=== PATIENT | female | born 1955 | race Caucasian/White ===

== ENCOUNTER 2020-05-10 13:03 | Day surgery (SDC) | payer MEDICARE ==
[~2020-05-10] VITALS: Ht 167.6 cm; Wt 93.2 kg
[~2020-05-10 13:03] MED LIST: CEFAZOLIN 1,000 MG ONE; DEXAMETHASONE 4 MG/ML, 1ML ONE; ONDANSETRON 2MG/ML, 2ML ONE; PROPOFOL 10 MG/ML, 20ML ONE; SUCCINYLCHOLINE 20 MG/ML, 10ML ONE
[2020-05-10] MEDS ORDERED: [UNRECOGNIZED DRUG - OTHER] PO (13:45)
[2020-05-10] MEDS ORDERED: ALBUTEROL INH (13:45)
[2020-05-10] MEDS ORDERED: OMEPRAZOLE PO (13:45)
[2020-05-10] MEDS ORDERED: SPIRIVA INH (13:45)
[2020-05-10] MEDS ORDERED: HYDROCHLOROTHIAZIDE PO (13:45)
[2020-05-10] MEDS ORDERED: CHLORHEXIDINE 15 ML UDC ONE (13:49)
[2020-05-10] MEDS ORDERED: CHLORHEXIDINE 15 ML UDC MM ONE (14:00)
[2020-05-10 14:09] VITALS: BP 121/73
[2020-05-10 14:21] LABS: ALANINE AMINOTRANSFERASE 11 U/L (12-78); ALBUMIN 3.1 g/dL (3.4-5.0); ANION GAP 7 mmol/L (5-15); CALCIUM 9.4 mg/dL (8.5-10.1); CHLORIDE 101 mmol/L (98-107); CREATININE 0.97 mg/dL (0.55-1.02)
[2020-05-10 14:23] LABS: ALKALINE PHOSPHATASE 128 U/L (45-117); BILIRUBIN,TOTAL 0.7 mg/dL (0.2-1.0); TOTAL PROTEIN 7.2 g/dL (6.4-8.2)
[2020-05-10] MEDS ORDERED: LACTATED RINGERS 1,000 ML IV SCH (14:30)
[2020-05-10] MEDS ORDERED: BUPIVACAINE/PF 0.5% ONE (14:40)
[2020-05-10] MEDS ORDERED: HEPARIN 1,000 UNITS/ML, 10ML ONE (14:40)
[2020-05-10] MEDS ORDERED: EPINEPHRINE 1 MG/ML, 1ML ONE (14:40)
[2020-05-10] MEDS ORDERED: MIDAZOLAM 1 MG/ML, 2ML ONE (15:15)
[2020-05-10] MEDS ORDERED: FENTANYL PF 250 MCG/5ML ONE (15:16)
[2020-05-10] MEDS ORDERED: BUPIVACAINE/PF-EPI 0.5% 1:200K INFIL ONE (16:44)
[2020-05-10] MEDS ORDERED: HEPARIN 1,000 UNITS/ML, 1ML IV ONE (16:46)
[2020-05-10] MEDS ORDERED: MEPERIDINE/PF 25MG/0.5ML IVPush PRN (18:00)
[2020-05-10] MEDS ORDERED: PROMETHAZINE 25 MG/ML, 1ML IVPush PRN (18:00)
[2020-05-10] MEDS ORDERED: DIAZEPAM 5 MG/ML, 2ML IVPush PRN (18:00)
[2020-05-10] MEDS ORDERED: ACETAMINOPHEN 325 MG TABLET PO PRN (18:00)
[2020-05-10] MEDS ORDERED: DIPHENHYDRAMINE 50 MG/ML, 1ML IVPush PRN (18:00)
[2020-05-10] MEDS ORDERED: MIDAZOLAM 1 MG/ML, 2ML IV PRN (18:00)
[2020-05-10] MEDS ORDERED: HYDROmorphone 1 MG/ML, 1ML INJ IVPush PRN (18:00)
[2020-05-10] MEDS ORDERED: OXYcodone 5 MG/5 ML ORAL.SOL UDC PO PRN (18:00)
[2020-05-10] MEDS ORDERED: LABETALOL 5MG/ML, 20ML IV PRN (18:00)
[2020-05-10] MEDS ORDERED: EPHEDRINE 50 MG/ML, 1ML IVPush PRN (18:00)
[2020-05-10] MEDS ORDERED: hydrALAzine 20 MG/ML, 1ML IV PRN (18:00)
[2020-05-10] MEDS ORDERED: ONDANSETRON 2MG/ML, 2ML IVPush PRN (18:00)
[2020-05-10] MEDS ORDERED: FENTANYL PF 100 MCG/2ML IV PRN (18:00)
[2020-05-10] MEDS ORDERED: ALBUTEROL SULFATE 2.5 MG/3 ML NPPB PRN (18:00)
[2020-05-10] MEDS ORDERED: PROMETHAZINE 12.5 MG SUPP PR PRN (18:00)
== END 2020-05-10 19:30 | disposition home or self-care (01) ==
LOC: OUT 13:03
PROVIDERS: ATTEND Surgery
DX: C83.35 Diffuse large B-cell lymphoma, lymph nodes of inguinal region and lower limb (principal); I10 Essential (primary) hypertension; J44.9 Chronic obstructive pulmonary disease, unspecified; Z20.828 Contact with and (suspected) exposure to other viral communicable diseases; Z87.891 Personal history of nicotine dependence; Z79.899 Other long term (current) drug therapy; Z88.8 Allergy status to other drugs, medicaments and biological substances; Z83.3 Family history of diabetes mellitus; Z82.49 Family history of ischemic heart disease and other diseases of the circulatory system
CPT/HCPCS: 36415; 36561; 38531; 71045; 77001; 80053; 87635; 88184; 88185; 88307; 88341; 88342; 88360; 88365; 88377; 93005; C1760; C1788; J0171; J0330; J0690; J1100; J1644; J2250; J2405; J2704; J3010